=== PATIENT | male | born 1975 | race Caucasian/White ===

== ENCOUNTER 2022-04-28 19:37 | Emergency (ER) | payer OTHER, SELFPAY ==
[2022-04-28 19:51] VITALS: BP 144/100; PULSE 87; RESP 20; TEMP 36.3; O2SAT 100
--- NOTE | 2022-04-28 19:59 | ED.URI ---
HPI - URI/Sore Throat General Chief Complaint: Upper Respiratory Infection Stated Complaint: Sore Throat Time Seen by Provider: 04/28/22 19:38 Source: patient Mode of arrival: ambulatory Limitations: no limitations History of Present Illness HPI Narrative: 47 [facility] complaints of sore throat and swollen uvula since this morning. Patient reports that he was in [place] this weekend. Patient took [id number] Tylenol ibuprofen with minimal relief. Patient denies cough, congestion, runny nose, shortness of breath or wheezing. Patient denies new medications, new soaps or new detergents. Patient denies shortness of breath, wheezing, trouble swallowing or difficulty breathing. MD elicited complaint: sore throat Onset (ago): day(s) (1) Able to tolerate fluids by mouth: Yes Exacerbating factors: swallowing Relieving factors: nothing Context: recent travel Associated symptoms: denies other symptoms Treatments prior to arrival: acetaminophen Related Data Allergies Allergy/AdvReac Type Severity Reaction Status Date / Time No Known Allergies Allergy Mild Verified 04/28/22 19:43 Review of Systems Constitutional: Constitutional: Denies chills, Denies fatigue, Denies fever(s) and Denies weakness ENT: Denies dizziness Comments: sore throat and swelling to uvula Respiratory: Respiratory: Denies cough, Denies dyspnea and Denies wheezing Gastrointestinal: Gastrointestinal: Denies diarrhea, Denies nausea and Denies vomiting Integumentary/Breasts: Skin/Breast: Denies rash Neurologic: Denies dizziness PMFSH Comments At time of signature, I agree with nursing past medical, surgical, social and family history. There is no relevant family history pertinent to the presenting complaint. Exam Const: General: healthy appearing Nutritional Appearance: well nourished Orientation/consciousness: patient oriented x3 Limitations: no limitations HENMT: Ears: external ears normal and TM's normal bilaterally Mouth: Yes Normal oral and palatal mucosa present and Yes moist mucous membranes Teeth and gingiva: dentition normal Other: Mild erythema and swelling noted to bilateral tonsils, there is also mild erythema and swelling noted to uvula. Airway is patent. Neck: Neck: normal visual inspection Resp: Effort & Inspection: normal respiratory effort and not labored Auscultation: clear to auscultation bilaterally, no crackles, no rales, no rhonchi and no wheezes Cardio: Rate: regular rate Rhythm: regular rhythm Heart sounds: no murmurs Skin: General skin exam: normal color Rashes: no rashes Wounds: no wounds Neuro: General: patient oriented x3 Speech: normal speech Gait exam (Neuro): Normal gait present Psych: Affect: normal affect Attitude: cooperative Course Course Level of Care: Express Care Visit Vital Signs Vital signs: Vital Signs Temperature 36.3 C L 04/28/22 19:51 Pulse Rate 87 04/28/22 19:51 Respiratory Rate 20 04/28/22 19:51 Blood Pressure 144/100 H 04/28/22 19:51 Pulse Oximetry 100 04/28/22 19:51 Oxygen Delivery Room Air 04/28/22 19:51 Temperature 36.3 C L 04/28/22 19:51 Pulse Rate 87 04/28/22 19:51 Respiratory Rate 20 04/28/22 19:51 Blood Pressure 144/100 H 04/28/22 19:51 Pulse Oximetry 100 04/28/22 19:51 Oxygen Delivery Room Air 04/28/22 19:51 MDM - URI/Sore Throat MDM Narrative Medical decision making narrative: Patient agrees to take prednisone and antibiotic as prescribed. Instructed patient to complete warm salt water gargles as needed. Patient agrees take [id number] Tylenol as needed. Patient agrees to proceed to the emergency room if symptoms worsen Differential Diagnosis Differential diagnosis: Likely upper respiratory infection, otitis media and sinusitis Lab Data Labs: Strep Screen Presumptive Negative *(Reference Range: Negative)* Critical Ca
== END 2022-04-28 20:08 | disposition home or self-care (01) ==
PROVIDERS: Emergency Provider Nurse Practitioner Family
DX: K12.2 Cellulitis and abscess of mouth (principal); Z86.16 Personal history of COVID-19
CPT/HCPCS: 87081; 87880; 99213; G0463